=== PATIENT | male | born 1930 | race Caucasian/White ===

== ENCOUNTER 2019-11-10 19:42 | Observation (INO) | payer MEDICARE, OTHER ==
[2019-11-10 20:53] LABS: #Basophils 0.1 thou/uL (0.0-0.2); #Lymphocytes 1.6 thou/uL (1.20-3.40); %Basophils 0.4 % (0.0-1.0); %Eosinophils 0.1 % (0.0-10.0); %Lymphocytes 11.5 % (21.0-51.0); %Monocytes 7.3 % (0.0-10.0); %Neutrophils 80.7 % (42.0-75.0); Mean Corpuscular HGB CONC 33.7 g/dL (32.0-36.0); Mean Corpuscular Hemoglobin 29.8 pg (27.0-31.0); Mean Corpuscular Volume 88.7 fL (78.0-98.0); Mean Platelet Volume 8.3 fL (7.4-10.4); Platelet Count 187 thou/uL (130-400); RBC Distribution Width 12.4 % (11.5-14.5); Red Blood Cell (RBC) Count 4.68 mill/uL (4.70-6.10); White Blood Cell (WBC) Count 13.6 thou/uL (4.8-10.8)
[2019-11-10 21:19] LABS: ALT (SGPT) 13 U/L (8-55); AST (SGOT) 19 U/L (5-34); Alkaline Phosphatase 74 U/L (40-110); Anion Gap 14 mmol/L (10-20); BUN (Urea Nitrogen) 24 mg/dL (8.4-25.7); Bilirubin, Total 2.1 mg/dL (0.2-1.2); Calc. Creatinine Clearance 0 mL/min (70-130); Calcium 9.1 mg/dL (7.8-10.44); Carbon Dioxide 26 mmol/L (23-31); Chloride 103 mmol/L (98-107); Estimated GFR-MDRD 50; Globulin 2.9 g/dL (2.4-3.5); Glucose 114 mg/dL (83-110); Potassium 4.2 mmol/L (3.5-5.1); Protein, Total 6.9 g/dL (5.8-8.1); Sodium 139 mmol/L (136-145)
--- NOTE | 2019-11-10 21:25 | RAD ---
PORTABLE AP CHEST X-RAY: 11/10/19 HISTORY: Syncope. COMPARISON: 07/17/12. FINDINGS: Dual lead left subclavian AICD device remains in place. The cardiac silhouette is stable in size. Pu lmonary vasculature is within normal limits. No consolidation or pleural fluid is identified. Vascula r calcifications seen in the thoracic aorta. No interval change from prior study. IMPRESSION: Stable chest without evidence of an acute cardiopulmonary process. POS: [facility]
[2019-11-11 01:01] VITALS: BMI 23.6
[2019-11-11] MEDS ORDERED: Sodium Chloride 0.9% 1,000 ML IV SCH (01:15)
[2019-11-11 06:23] LABS: Anion Gap 7 mmol/L (10-20); BUN (Urea Nitrogen) 25 mg/dL (8.4-25.7); Calc. Creatinine Clearance 46 mL/min (70-130); Calcium 8.1 mg/dL (7.8-10.44); Carbon Dioxide 26 mmol/L (23-31); Chloride 110 mmol/L (98-107); Estimated GFR-MDRD 62; Glucose 105 mg/dL (83-110); Potassium 3.8 mmol/L (3.5-5.1); Sodium 139 mmol/L (136-145)
[2019-11-11 06:29] LABS: Troponin I 0.014 ng/mL (< 0.028)
--- NOTE | 2019-11-11 07:21 | HP ---
PRIMARY CARE PHYSICIAN: Unknown. MODEL DRESSER: Dr. Davison. CHIEF COMPLAINT: Lower extremity weakness, syncope. HISTORY OF PRESENT ILLNESS: An 88-year-old male with past medical history of nonischemic cardiomyopathy, status post AICD placement, chronic atrial fibrillation, on Coreg and Xarelto, hypertension, hypothyroidism, dyslipidemia, who was brought into [facility] ER by family members after experiencing complaints of generalized weakness in bilateral lower extremities after doing 30 minutes of yard work included the weed eating and inability to get up off chair. The patient was brought to the ER for further evaluation. In the ER, while sitting, the patient had a syncopal episode without head trauma. The initial vital signs did reveal some hypotension with systolic blood pressure in 90s. Labs revealed a white blood cell count of 13.6 with BUN/creatinine 24/1.35, GFR 50, and a total bilirubin of 2.1. Initial troponin was negative. A chest x-ray revealed no acute pathology. The patient was administered 1 L of normal saline bolus and placed on maintenance with 100 mL/h, admitted for further observation. Orthostatic vital signs were requested but not obtained. At bedside, the patient offers no acute complaints. He notes chronic complaints of generalized weakness in bilateral lower extremities, but denies any complaints of dizziness, lightheadedness, near syncope, syncope, angina, palpitation, or dyspnea. He denies any chest pain or known AICD discharge. Nursing staff notes frequent premature beats on telemetry. PAST MEDICAL HISTORY: Nonischemic cardiomyopathy, chronic atrial fibrillation, hypertension, dyslipidemia, and hypothyroidism. PAST SURGICAL HISTORY: AICD placement, recent generator change, prostate surgery, bilateral retinal detachment surgeries, and appendectomy. SOCIAL HISTORY: The patient is , lives at home with his spouse, use of assistive device. At home, he intermittently uses assistive device. He denies any tobacco or alcohol use. ALLERGIES: LISTED ZOCOR AND ZESTRIL. REVIEW OF SYSTEMS: Pertinent positives as per HPI. Remainder of review of systems negative. HOME MEDICATIONS: Reviewed as per admission medication reconciliation. FAMILY HISTORY: The patient notes multiple malignancies in the family member. PHYSICAL EXAMINATION: VITAL SIGNS: Temperature maximum 99.5, pulse 54 to 79, blood pressure 156 to 110 over 61, oxygen saturation 93% on room air, respirations 16, unlabored. GENERAL APPEARANCE: He is a pleasant elderly male, who is awake, alert, oriented, coherent, lucid, not in any obvious distress, speaking in full complete sentences. HEENT: Normocephalic and atraumatic. No facial asymmetry. Mucous membranes are moist. Pupils are equally round. NECK: Supple. CARDIOVASCULAR: S1, S2. Irregular rate and rhythm. Left chest wall pacemaker/ AICD pocket site noted. There is systolic murmur noted. LUNGS: Bilateral equal air entry on posterior auscultation. Nonlabored respirations. No wheezing or rales. Symmetrical chest expansion. ABDOMEN: Soft, nontender, and nondistended. EXTREMITIES: No appreciable lower extremity edema. Bilateral lower extremities SCDs are noted. SKIN: Warm to touch without rash or pallor or abrasions. LABORATORY DATA: WBC 13.6, H and H 14/41.5, and platelets 187. Chemistries reveal sodium 139, potassium 4.2, chloride 103, bicarb 26, glucose 114, BUN/creatinine 24/1.35, GFR 50. LFTs unremarkable. Troponin I negative x1. IMAGING: One-view chest x-ray is unremarkable. ASSESSMENT: 1. Syncope of unspecified etiology, possibly orthostatic. The patient will be admitted as observation status and will be placed on telemetry monitoring. He has noted prodromal of doing a laborious work with electrolyte derangements and suspect symptoms are likely secondary to intravascular depletion. Orthostatic vital signs were not yet checked, and we will obtain. We will continue maintenance fluids with isotonic saline. We will repeat a.m. labs. We will request interrogation of patient's device to evaluate for any life-threatening arrhythmias. 2. Dehydration, continue IV fluid resuscitation. Labs suggest pre-renal state. 3. Generalized weakness of bilateral lower extremities. The patient reported it as a chronic problem and was exacerbated by doing yard work today with 30 minutes of weed eating. 4. Chronic atrial fibrillation. Continue Xarelto and Coreg. Monitor blood pressures for hypotension. 5. Nonischemic cardiomyopathy with history of AICD. 6. History of hypothyroidism. Continue levothyroxine. Deep venous thrombosis prophylaxis: Oral anticoagulation will need to be resumed. DISPOSITION: The patient will be admitted to telemetry observation status. Anticipate discharge home within 24 hours. Check a.m. labs on 11/11/2019. Job ID: [id number] [facility]ALTH[facility]
[2019-11-11] MEDS ORDERED: Polyethylene Glycol 3350 17 GM Packet PO PRN (10:07)
--- NOTE | 2019-11-11 14:05 | PRG ---
DATE OF SERVICE: 11/11/2019 SUBJECTIVE: The patient is seen and examined at bedside. He feels significantly better. His legs are stronger. OBJECTIVE: VITAL SIGNS: Blood pressure is 155/74, pulse is 72, temperature is 98, respirations 20, and O2 saturation 92% on room air. HEENT: Head is atraumatic, normocephalic. Eyes are PERRLA. Sclerae are nonicteric. Oral mucosa is moist. NECK: Supple. LUNGS: Clear. HEART: S1-S2, somewhat irregular. Systolic murmur mostly audible over the sternum. ABDOMEN: Soft, nontender, nondistended. EXTREMITIES: No clubbing, cyanosis, or edema. NEUROLOGICAL: He follows my commands. He moves all 4 extremities. There are no any motor or sensory deficits. LABORATORY DATA: Labs showed sodium of 139, potassium 3.8, chloride 110, CO2 of 26, BUN 25, creatinine 1.12, glucose 105, calcium 8.1. Troponin 0.014. IMPRESSION: 1. Syncopal episode. Most likely related to hypovolemia. 2. Dehydration. 3. Cardiac arrhythmia with status post interrogation of his pacemaker with multiple PVCs. 4. Chronic atrial fibrillation. 5. Nonischemic cardiomyopathy with history of AICD. 6. History of hypothyroidism. PLAN: Plan is to have user interface developer see him to assess his cardiac status. He is rehydrated. His prerenal azotemia is improved. We will keep holding his home medications except for levothyroxine and polyethylene glycol since his blood pressure is running in good range, user interface developer will make decision about restarting amlodipine, carvedilol, and Atacand and Xarelto. He should be able to go home in the next 24 hours. We will get PT and make sure he is stable before he is discharged home. Job ID: [id number]
[2019-11-11 14:57] LABS: Bacteria/HPF None Seen HPF (None Seen); Bilirubin Negative (Negative); Blood, Urine Trace (Negative); Clarity Clear (Clear); Glucose, Urine (Dipstick) Normal (Negative); Leukocyte 75 Leu/uL (Negative); Nitrite Negative (Negative); Protein, Urine (Dipstick) 10 mg/dL (Neg-Trace); RBC/HPF 0-3 HPF (0-3); Squamous Epithelial 0-3 HPF (0-3); WBC/HPF 0-3 HPF (0-3)
[2019-11-11 15:02] LABS: Urine Culture Reflex Yes Yes
[2019-11-12] MEDS ORDERED: Levothyroxine Sodium 50 MCG TAB PO SCH (06:00)
[2019-11-12 07:37] LABS: #Basophils 0.1 thou/uL (0.0-0.2); #Eosinphils 0.1 thou/uL (0.0-0.7); #Lymphocytes 1.5 thou/uL (1.20-3.40); #Monocytes 1.2 thou/uL (0.11-0.59); #Neutrophils 6.7 thou/uL (1.40-6.50); %Basophils 0.6 % (0.0-1.0); %Eosinophils 0.9 % (0.0-10.0); %Lymphocytes 16.1 % (21.0-51.0); %Monocytes 12.3 % (0.0-10.0); %Neutrophils 70.1 % (42.0-75.0); Hemoglobin 12.9 g/dL (14.0-18.0); Mean Corpuscular HGB CONC 32.7 g/dL (32.0-36.0); Mean Corpuscular Hemoglobin 29.2 pg (27.0-31.0); Mean Corpuscular Volume 89.3 fL (78.0-98.0); Mean Platelet Volume 7.8 fL (7.4-10.4); Platelet Count 160 thou/uL (130-400); RBC Distribution Width 12.5 % (11.5-14.5); Red Blood Cell (RBC) Count 4.41 mill/uL (4.70-6.10); White Blood Cell (WBC) Count 9.5 thou/uL (4.8-10.8)
[2019-11-12] MEDS ORDERED: Amlodipine 5 MG TAB PO SCH (12:00)
[2019-11-12 16:43] VITALS: BP 115/68; TEMP 98.2
[2019-11-12] MEDS ORDERED: Carvedilol 25 MG TAB PO SCH (17:00)
[2019-11-12] MEDS ORDERED: Rivaroxaban 10 MG TAB PO SCH (21:00)
--- NOTE | 2019-11-13 04:41 | DIS ---
DATE OF ADMISSION: 11/10/2019 DATE OF DISCHARGE: 11/12/2019 FINAL DIAGNOSIS AT THE TIME OF DISCHARGE: 1. Syncopal episode, most likely related to hypovolemia. 2. Dehydration. 3. Lower extremity weakness, improved. 4. Cardiac arrhythmia with status post interrogation of his pacemaker with no significant abnormalities at the time of event. 5. Chronic atrial fibrillation. 6. Nonischemic cardiomyopathy with history of AICD. 7. History of hypothyroidism. LOOPING MACHINE OPERATOR: Dr. Penn, Cardiology Service. HOSPITAL COURSE: The patient is an 88-year-old male with past medical history of nonischemic cardiomyopathy, status post AICD placement, chronic atrial fibrillation, hypertension, hypothyroidism, dyslipidemia, who was brought into the emergency room by family members after experiencing complaints of generalized weakness in bilateral lower extremities after doing 30 minutes of yard work, including weedeating and inability to get up of chair. The patient had syncopal episodes without any head trauma. While being in sitting position in the emergency room, the blood pressure check showed a systolic pressure running in the 90s. His white count during evaluation was 13.6 with BUN to creatinine ratio 24 to 1.35. Initial troponin was negative. Chest x-ray revealed no acute pathology. He was given 1 L of normal saline bolus and was placed on IV fluids 100 mL/hour. Orthostatic vital signs were requested, but not obtained. The patient was admitted to observation unit. His pacemaker was interrogated and it showed some PVCs, nonsustained ventricular tachycardia, but this was in October. The patient was consulted with Cardiology and it was felt that his syncope and weakness were related to dehydration and volume depletion since his condition significantly improved after IV fluids were given and the volume status was resuscitated. The patient is on Xarelto for his chronic atrial fibrillation and blood pressure control. The patient is doing well. All his medications for the blood pressure were stopped when he had syncope and the blood pressure was running in the normal range. Today, we started introducing his medications back. He is tolerating amlodipine so far and he is going to be discharged home. His blood pressure is 113/66. I am not ready to introduce his Coreg and Atacand yet in view of possible hypotension, but he is advised to start checking his blood pressure 4 times a day, which is his customary thing to do and when his systolic blood pressure goes up to 170s, he will start using Coreg in the dose of 12.5 mg twice a day, which is half dose what he was taking before the hospitalization. Also, his Atacand is on hold. His other medications at the time of discharge; MiraLAX 17 g daily p.r.n., coenzyme Q10 at 400 mg daily, Xarelto 20 mg at bedtime. As I mentioned above, amlodipine 2.5 mg twice a day and fish oil 1000 mg daily, levothyroxine 50 mcg once a day. FOLLOWUP: He is going to follow up with Dr. Bautista, his primary care physician, in 1 week. Job ID: [id number]
[2019-11-13] MEDS ORDERED: Fish Oil 1,000 MG CAP PO SCH (09:00)
[2019-11-13] MEDS ORDERED: Ubidecarenone 50 MG CAP PO SCH (09:00)
[2019-11-13] MEDS ORDERED: Losartan 25 MG TAB PO SCH (09:00)
== END 2019-11-12 17:58 | disposition home or self-care (01) ==
LOC: ERS 19:42 → 2SW 23:18
PROVIDERS: ADMIT Hospitalist; ATTEND Hospitalist
DX: R55 Syncope and collapse (principal); E86.0 Dehydration; R53.1 Weakness; I42.8 Other cardiomyopathies; I48.20 Chronic atrial fibrillation, unspecified; I10 Essential (primary) hypertension; E03.9 Hypothyroidism, unspecified; E78.5 Hyperlipidemia, unspecified; Z79.01 Long term (current) use of anticoagulants; Z79.899 Other long term (current) drug therapy; Z88.8 Allergy status to other drugs, medicaments and biological substances; Z95.810 Presence of automatic (implantable) cardiac defibrillator
CPT/HCPCS: 71045; 80048; 80053; 81001; 82962; 84484 ×2; 85025 ×2; 87086; 93005; 94760; 96360; 96361; 97139 ×2; 99285; G0378 ×4; 36415; 36416